=== PATIENT | female | born 1970 | race Caucasian/White ===

== ENCOUNTER → 2016-09-03 | Outpatient (CLI) | payer OTHER ==
--- NOTE | 2016-09-05 14:05 | RAD ---
EXAM DESCRIPTION: Ankle,Right 2 Views CLINICAL HISTORY: 46 years, Female, CELLULITIS OF LOWER LIMB COMPARISON: None. FINDINGS: No fracture or dislocation. Soft tissue swelling laterally around the ankle. Possible small joint effusion. Mild degenerative change at the talonavicular joint. IMPRESSION: No fracture or dislocation. Soft tissue swelling laterally around the ankle Electronically signed by: Albaro Christopher MD 09/05/2016 2:04 PM CDT
== END | disposition home or self-care (01) ==
LOC: YCFC.O 12:23
PROVIDERS: ATTEND Nurse Practitioner Family
DX: L03.119 Cellulitis of unspecified part of limb (principal)

== ENCOUNTER → 2017-01-28 | Outpatient (CLI) | payer OTHER ==
--- NOTE | 2017-01-29 16:10 | RAD ---
Procedure: XR CHEST 2 VIEWS Exam date: 01/28/2017 12:30 PM ENERGY ADMINISTRATOR Ordering Provider: Chetan Ha Clinical Indication: COPD Comparison: 04/18/2015 Findings: Cardiomediastinal silhouette is within normal limits. Stable findings of COPD. No new pulmonary finding. No pleural effusion or pneumothorax. Osseous structures are nonacute. No evidence of active tuberculosis. Impression: No acute cardiopulmonary process. 2. Stable COPD. Electronically signed by: Jaycob Saul MD 01/29/2017 4:09 PM ENERGY ADMINISTRATOR
== END | disposition home or self-care (01) ==
LOC: YCFC.O 12:16
DX: J44.9 Chronic obstructive pulmonary disease, unspecified (principal)

== ENCOUNTER 2017-04-09 15:04 | Emergency (ER) | payer OTHER ==
[2017-04-09 15:08] VITALS: TEMP 99.9
[2017-04-09] MEDS ORDERED: LEVALBUTEROL NEBS 1.25 MG/3 ML VIAL NEB ONE ×2 (15:15→18:19)
--- NOTE | 2017-04-09 15:15 | ED.PDOC ---
History of Present Illness - General Chief Complaint: Respiratory Problem Stated Complaint: Shortness of breath Time Seen by Provider: 04/09/17 15:12 Source: patient Exam Limitations: no limitations - History of Present Illness Initial Comments: Veronica Kaimnski 47 y/o female seen in er today after primary Md sent her here with productive cough for 2 weeks,low oxygen saturation and low blood pressure.She was treated with antibiotics but according to patient not feeling better.Denies chills ,has low grade fever.No body aches. Timing/Duration: constant, other - see hpi Severity: moderate Activities at Onset: none Possible Cause: unknown cause Improving Factors: nothing Worsening Factors: nothing Associated Symptoms: other - see hpi Respiratory Risk Factors: no cause identified Allergies/Adverse Reactions: Allergies NO KNOWN ALLERGY Allergy (Verified 04/09/17 15:08) Home Medications: Ambulatory Orders [place] Carbonate 300 mg PO BEDTIME 07/22/15 [place] Carbonate 300 mg PO BEDTIME 07/22/15 Seroquel 500 mg PO ACHS 07/22/15 Albuterol Inhaler [Ventolin Hfa Inhaler] 2 puff IN Q6HRS PRN #1 inh 04/09/17 Levofloxacin [Levaquin] 500 mg PO DAILY #14 tab 04/09/17 Review of Systems - Review of Systems Constitutional: States: no symptoms reported EENTM: States: no symptoms reported Respiratory: States: see HPI Cardiology: States: no symptoms reported Gastrointestinal/Abdominal: States: no symptoms reported Genitourinary: States: no symptoms reported Musculoskeletal: States: no symptoms reported Skin: States: no symptoms reported All other Systems: Reviewed and Negative, No Change from Baseline Past Medical History (General) - Patient Medical History Hx Stroke: No Hx of COPD: Yes Hx Congestive Heart Failure: No Hx Diabetes: No Surgical History: other - btl - Vaccination History Hx Influenza Vaccination: No Hx Pneumococcal Vaccination: No - Social History Hx Tobacco Use: Yes Hx Alcohol Use: Yes Hx Substance Use: Yes Hx Depression: Yes Hx Physical Abuse: No Hx Emotional Abuse: No Hx Suspected Abuse: No - Activities of Daily Living Patient Lives Alone: No Grooming Ability: Independent Eating (Feeding) Ability: Independent Toileting Ability: Independent - Female History Patient is a Female of Child Bearing Age (10 -59 yrs old): Yes Patient : No Family Medical History - Family History Brother Family History: No Known Living Status: Still Living Hx Family Cancer: Yes - mom-breast and melanoma(living);Lung cancer -dad( ) Physical Exam - Physical Exam General Appearance: Alert, Comfortable, No apparent distress Eyes, Ears, Nose, Throat Exam: PERRL/EOMI, normal ENT inspection, TMs normal, pharynx normal Neck: non-tender, full range of motion, supple Respiratory: chest non-tender, no respiratory distress, rhonchi, other - speaks in full sentences Cardiovascular/Chest: regular rate, rhythm, no murmur Peripheral Pulses: radial,right: 2+, radial,left: 2+ Gastrointestinal/Abdominal: normal bowel sounds, non tender, soft, no organomegaly Extremity: normal range of motion, non-tender, no calf tenderness Skin Exam: normal color, warm/dry Progress - Progress Progress: 04/09/17 17:00 Last Vital Signs Temp 99.9 F H 04/09/17 15:07 Pulse 88 04/09/17 15:07 Resp 26 H 04/09/17 15:07 BP 103/65 04/09/17 15:07 Pulse Ox 91 L 04/09/17 15:07 Laboratory Tests 04/09/17 04/09/17 04/09/17 15:46 15:46 16:18 WBC 10.9 H RBC 3.65 L Hgb 11.3 L Hct 34.1 L MCV 93.3 MCH 30.9 MCHC 33.1 RDW 14.2 Plt Count 425 H MPV 7.5 Absolute Neuts (auto) 6.90 H Absolute Lymphs (auto) 3.00 Absolute Monos (auto) 0.60 Absolute Eos (auto) 0.30 Absolute Basos (auto) 0.10 Neutrophils % 63.9 Lymphocytes % 27.6 Monocytes % 5.2 Eosinophils % 2.8 Basophils % 0.5 PT 11.1 INR 0.980 PTT (SP) 37.7 H D-Dimer, Quantitative < 230 Sodium 136 Potassium 3.8 Chloride 107 Carbon Dioxide 23 Anion Gap 9.8 L BUN 17 Creatinine 0.66 BUN/Creatinine Ratio 25.8 H Random Glucose 93 Serum Osmolality 273.2 L Lactic Acid 1.1 Calcium 9.4 Magnesium 1.9 Total Bilirubin 0.3 Direct Bilirubin < 0.1 Indirect Bilirubin 0.2 AST 22 ALT 13 Alkaline Phosphatase 75 Creatine Kinase 24 L CK-MB (CK-2) 0.7 CK-MB (CK-2) % Not Reportable Troponin I < 0.02 Serum Total Protein 8.2 Albumin 3.5 04/09/17 17:00 Eating burger/fries in the room with - EKG/XRAY/CT EKG: Sinus, no ST T wave changes Comments: Heart rate-81 XRAY: chest - patchy alveolar infiltrate left side Departure - Departure Clinical Impression: Dehydration Pneumonia Qualifiers: Pneumonia type: due to unspecified organism Laterality: left Lung location: lower lobe of lung Qualified Code(s): J18.1 - Lobar pneumonia, unspecified organism Time of Disposition: 19:14 Disposition: Discharge to Home or Self Care Condition: Good Departure Forms: ED Discharge - Pt. Copy, Patient Portal Self Enrollment Instructions: Positive Mental Health Changes Found After Smoking Cessation, Reasons to Quit Smoking, All Forms of Smoking Are Bad for You, DI for Pneumonia -- Adult Referrals: Chetan Ha MD [Referring] - 1-2 Weeks Prescriptions: Albuterol Inhaler [Ventolin Hfa Inhaler] 2 puff IN Q6HRS PRN #1 inh PRN Reason: Wheezing Levofloxacin [Levaquin] 500 mg PO DAILY #14 tab Home Medications: Ambulatory Orders [place] Carbonate 300 mg PO BEDTIME 07/22/15 [place] Carbonate 300 mg PO BEDTIME 07/22/15 Seroquel 500 mg PO ACHS 07/22/15 Albuterol Inhaler [Ventolin Hfa Inhaler] 2 puff IN Q6HRS PRN #1 inh 04/09/17 Levofloxacin [Levaquin] 500 mg PO DAILY #14 tab 04/09/17 Additional Instructions: RETURN TO EMERGENCY ROOM NEEDED;Follow up with primary Md 04/19/17 call for your appointment
[2017-04-09] MEDS ORDERED: LACTATED RINGERS 1,000 ML IVS ONE (16:00)
--- NOTE | 2017-04-09 16:00 | RAD ---
EXAM DESCRIPTION: Chest,1 View CLINICAL HISTORY: sob COMPARISON: January 28, 2017 IMPRESSION: Single AP portable upright view of the chest shows cardiac silhouette and pulmonary vasculature to be within normal limits. Lungs are normally aerated. There is a new area of patchy interstitial alveolar infiltrate in the left lower chest that could represent atelectasis versus pneumonia. Recommend follow-up until resolution to exclude neoplastic process. Chronic interstitial changes in the lungs are again seen in . No obvious pleural effusion or pneumothorax is seen. Electronically signed by: Nils Freeman MD 04/09/2017 3:58 PM PEDIATRIC LPN
[2017-04-09] MEDS ORDERED: IPRATROPIUM/ALBUTEROL 3 ML VIAL NEB ONE (17:02)
[2017-04-09] MEDS ORDERED: cefTRIAXone SODIUM 1 GM in SODIUM CHL 0.9% 50ML MIN-BAG+ 50 ML IVPB ONE (17:02)
[2017-04-09] MEDS ORDERED: SODIUM CHL 0.9% 50ML MIN-BAG+ 50 ML IVPB ONE (17:20)
[2017-04-09] MEDS ORDERED: cefTRIAXone SODIUM 1 GM VIAL ONE (17:20)
[2017-04-09 18:27] VITALS: O2SAT 92
[2017-04-09 19:35] VITALS: BP 102/64
== END 2017-04-09 19:38 | disposition home or self-care (01) ==
LOC: ER 15:04
DX: J18.1 Lobar pneumonia, unspecified organism (principal); E86.0 Dehydration; J44.9 Chronic obstructive pulmonary disease, unspecified; Z87.891 Personal history of nicotine dependence
CPT/HCPCS: 36415; 71045; 80048; 80076; 80178; 80307; 81001; 82550; 82553; 83605; 84484; 85025; 85379; 85610; 85730; 93005; 94640; J0696; J7050; J7120; J7614; J7620

== ENCOUNTER → 2018-01-03 | Outpatient (CLI) | payer OTHER ==
--- NOTE | 2018-01-04 20:08 | MAM ---
EXAM DESCRIPTION: 3D Screening BILATERAL : Digital Mammography. CLINICAL HISTORY: 47 years Female SCREENING . No complaints. No personal history of breast cancer. Mother and sister with breast cancer. Remote family history of breast cancer and ovarian cancer. Childbirth. Postmenopausal 40 years. No HRT. Lifetime risk of developing breast cancer (Tyrer-Cuzick model)(%): 29.7. COMPARISON: 2-D digital screening bilateral study 04/15/2015.. TECHNIQUE: Bilateral CC and MLO projection full-field images, Digital tomosynthesis mammographic technique. Bilateral digital 2-D full-field MLO images. CAD not utilized. FINDINGS: The breast parenchymal density pattern is: Heterogeneously dense breast tissue, which may obscure small masses. No skin thickening or nipple retraction. Fibroglandular tissues bilaterally in a nodular pattern. Bilateral axillary lymph nodes. Bilateral solitary microcalcifications. Focal mass density upper outer quadrant of the posterior third of the right breast stable since the prior study. Stable nodular densities in the anterior middle third of the upper-outer quadrant of the left breast. No new focal, stellate mass or density, focal asymmetry , and no suspicious microcalcifications bilaterally. Stable mammograms compared to prior study. Taking into account, differences in mammographic technique. IMPRESSION: Benign exam. BIRAD CATEGORY: 2 BENIGN FINDINGS. RECOMMENDATIONS: FOLLOW UP: Routine digital bilateral screening, one year interval from December 2017. Written communication explaining the IMPRESSION and follow-up, will be mailed to the patient and referring health care provider. According to the [employer], yearly mammograms are recommended starting at age 40 and continuing as long as a woman is in good health. Any breast change noted on a breast self-exam should be reported promptly to the patient's healthcare provider. Breast MRI is recommended for women with an approximately 20-25% or greater lifetime risk of breast cancer, including women with a strong family history of breast or ovarian cancer and women who have been treated for Hodgkin's disease. A negative mammographic report should not delay tissue diagnosis in patients with significant clinical history or physical findings. Extremely dense breast tissue limits the sensitivity of digital mammography. Electronically signed by: David Johnson MD 01/04/2018 8:06 PM CDT
== END ==
LOC: MAMMO 12:26
PROVIDERS: ATTEND Nurse Practitioner Family
DX: Z12.31 Encounter for screening mammogram for malignant neoplasm of breast (principal)

== ENCOUNTER → 2018-06-06 | Outpatient (CLI) | payer OTHER | LOC: LAB.O 15:18 | PROVIDERS: ATTEND Nurse Practitioner Family | DX: R07.89 Other chest pain (principal) ==

== ENCOUNTER → 2019-11-03 | Outpatient (CLI) | payer OTHER ==
--- NOTE | 2019-11-06 13:55 | CT ---
Procedure: CT LUNG SCREENING Exam Date: 03 November 2019. Ordering Provider: Claire Silver Clinical Indication: NICOTINE DEPENDENCE . Current cigarette smoker. 25 pack years. This patient meets eligibility criteria for low-dose CT lung cancer screening. Comparison: Chest x-ray March 2017 Technique: Using a multislice scanner, sequential helical axial imaging was obtained in the thorax, 2.5 mm thickness, 2.5 mm separation, from the level of the thoracic inlet through the lung bases without IV contrast. A low dose protocol was utilized for BMI less than 30: BMI: 24.0. CTDI: 1.76 mGy. 120. kVp. 45 mA. DLP 71 mGy-cm. 2D sagittal and coronal reconstructed images, 6.0 mm thickness, were obtained. This exam was performed according to our departmental dose optimization program which includes use of automated exposure control, adjustment of the mA and/or kV according to patient size and/or use of iterative reconstruction technique. Nodule measurements under 10 mm are given as mean value of 3 axes diameters. FINDINGS: Lungs and large airways: Dilated airspaces with bulla more numerous in the upper lung hernández than the lower lung hernández. Multiple peripheral blebs in the upper and lower lung hernández and less in the apices and bases, associated with early honeycombing. Thickened septa in the upper and lower lung hernández. Peripheral groundglass densities less than 5 mm diameter right middle lobe. No abnormal nodules and no masses. No acute focal infiltrates. Pleura and space: Bilateral focal pleural thickening. Pleural parenchymal scarring in the medial right middle lobe. No effusion or pneumothorax. Mediastinum and annie: evaluation limited by low dose technique and lack of IV contrast. No enlarged lymph nodes, but multiple; no dominant solid mass. Heart and great vessels: Coronary artery calcifications. Minimal atherosclerotic calcification aortic arch. No cardiac enlargement. Chest wall, lower neck, axillae: Evaluation also limited by same factors as described above. Normal sized lymph nodes. Upper abdomen: Evaluation limited by low-dose technique. No free air or free fluid in the included peritoneal cavity. Included spleen and adrenal glands with normal size and density. Osseous structures: Evaluation limited by low dose MIP technique. Spondylosis mid and lower thoracic spine disc spaces. Partially healed left lateral sixth rib fracture. IMPRESSION: 1. Diffuse emphysematous changes are paraseptal. Bilateral multiple peripheral blebs in the midlung hernández with early honeycombing. No abnormal nodules and no mass. No focal infiltrate.. [facility] Best Practice Recommendations: please see below for Lung RADS category and FOLLOW-UP.* *Lung RADS category Category 1 - No nodule or definitely benign nodules (probability of malignancy less than 1%). Follow-up: Continue annual screening with Low Dose Chest CT in 12 months. Electronically signed by: David Johnson MD 11/06/2019 1:53 PM CDT
== END ==
LOC: CT 14:00
PROVIDERS: ATTEND Nurse Practitioner Family
DX: Z87.891 Personal history of nicotine dependence (principal); J43.9 Emphysema, unspecified; R91.8 Other nonspecific abnormal finding of lung field